=== PATIENT | female | born 1955 | race Caucasian/White ===

== ENCOUNTER 2020-12-16 10:21 | Observation (INO) ==
[2020-12-16] MEDS ORDERED: Propofol 10 MG/ML 20 ML BTL ONE ×3 (11:47→12:42)
[2020-12-16] MEDS ORDERED: fentaNYL 100 mcg/2 ml 50 MCG/ML VIAL ONE ×2 (11:47→12:42)
[2020-12-16] MEDS ORDERED: Lidocaine 2% PF 5 ML VIAL ONE ×4 (11:49→12:43)
[2020-12-16] MEDS ORDERED: Midazolam 2 mg/2 ml VIAL 1 mg/ml 2 ml VIAL (2 mg) ONE ×2 (11:50→12:42)
[2020-12-16] MEDS ORDERED: Glycopyrrolate IV 0.2 MG/ML 1 ML VIAL ONE (11:50)
[2020-12-16 11:54] LABS: ABS Basophils 0.1 10^3/ul (0-0.2); ABS Lymphocytes 1.3 10^3/ul (1.0-4.8); ABS Monocytes 1.1 10^3/ul (0-0.8); ABS Neutrophils 9.2 10^3/ul (1.5-7.7); Eosinophil % 0.3 %; Hematocrit 41 % (35-47); Hemoglobin 13.9 g/dL (12.0-16.0); Lymphocyte % 11.4 %; Mean Corpuscular HGB Conc 34 g/dL (31-36); Mean Corpuscular Hemoglobin 30 pg (27-31); Mean Corpuscular Volume 90 fL (80-97); Mean Platelet Volume 8.7 fL (7.4-10.4); Nucleated Red Blood Cells % 0.1; Platelet Count 196 10^3/uL (150-450); Red Cell Distribution Width 13 % (10-15); White Blood Count 11.8 10^3/uL (3.5-10.8)
[2020-12-16 12:09] LABS: INR 1.15 (0.82-1.09)
[2020-12-16 12:15] LABS: Albumin 4.2 g/dL (3.2-5.2); Albumin/Globulin Ratio 1.3 (1-3); Calcium 8.9 mg/dL (8.6-10.3); EGFR African American 115.5 (>60); EGFR Non-African American 95.4 (>60); Globulin 3.3 g/dL (2-4); Total Bilirubin 0.5 mg/dL (0.2-1.0); Total Protein 7.5 g/dL (6.4-8.9)
[2020-12-16] MEDS ORDERED: ceFAZolin 2 GM PREMIX 2 GM/50 ML BAG ONE (12:32)
[2020-12-16] MEDS ORDERED: ROPIVACAINE 5 MG/ML 30 ML BTL (0.5%) ONE (12:42)
[2020-12-16] MEDS ORDERED: Succinylcholine 200 mg VIAL 20 mg/ml 10 ml VIAL (200 mg) ONE (12:42)
[2020-12-16] MEDS ORDERED: Dexmedetomidine 200 mcg/2 ml 2 ml VIAL (200 mcg) ONE (12:43)
[2020-12-16] MEDS ORDERED: Lidocaine 1% w EPI 1:100,000 MDV 20 ML VIAL ONE (13:15)
[2020-12-16] MEDS ORDERED: Bacitracin INJECTION 50,000 UNITS ONE (13:15)
[2020-12-16] MEDS ORDERED: Phenylephrine 40 mcg/mL 10mL (400mcg) SYRINGE ONE ×2 (14:15→17:51)
[2020-12-16] MEDS ORDERED: Phenylephrine IV 10 MG/ML 1 ml VIAL ONE (14:29)
[2020-12-16] MEDS ORDERED: Dexamethasone IV 4 MG/ML VIAL 1 ml VIAL ONE (14:33)
[2020-12-16] MEDS ORDERED: Ondansetron 4 mg VIAL 2 MG/ML 2 ml VIAL ONE (14:33)
[2020-12-16] MEDS ORDERED: Rocuronium 50 mg VIAL 10 mg/ml 5 ml VIAL (50 mg) ONE ×2 (15:39→16:26)
[2020-12-16] MEDS ORDERED: Albumin Human 5% 12.5 GM/250 ML BTL IV ONE (16:00)
[2020-12-16] MEDS ORDERED: Magnesium Hydroxide LIQ 30 ML UDC PO PRN (16:36)
[2020-12-16] MEDS ORDERED: Morphine 2 MG/ML SYRINGE IV PRN (16:36)
[2020-12-16] MEDS ORDERED: Ondansetron 4 mg VIAL 2 MG/ML 2 ml VIAL IV PRN (16:36)
[2020-12-16] MEDS ORDERED: diPHENhydraMINE 25 mg TAB PO PRN (16:36)
[2020-12-16] MEDS ORDERED: Lactulose 30 ml UDC PO PRN (16:36)
[2020-12-16] MEDS ORDERED: Ondansetron ODT 4 mg TAB 4 MG TAB PO PRN (16:36)
[2020-12-16] MEDS ORDERED: oxyCODONE/Acetamin 5/325 mg TAB PO PRN (16:36)
[2020-12-16] MEDS ORDERED: diPHENhydraMINE IV 50 MG/ML 1 ml VIAL (BENADRYL) IV PRN (16:36)
[2020-12-16] MEDS ORDERED: oxyCODONE/Acetamin 10/325(NF) TAB PO PRN (16:52)
[2020-12-16] MEDS ORDERED: Nystatin TOP POWDER 15 GM BTL TOPICAL PRN (16:52)
[2020-12-16] MEDS ORDERED: Lactated Ringers 1000 ml BAG 1,000 ML IV SCH (17:00)
[2020-12-16] MEDS ORDERED: Acetaminophen IV 1 GM/100ML 100 ML ONE (17:43)
[2020-12-16] MEDS ORDERED: Naloxone 0.4 mg VIAL 0.4 mg/ml 1 ml VIAL IV PRN (18:18)
[2020-12-16] MEDS ORDERED: fentaNYL 100 mcg/2 ml 50 MCG/ML VIAL IV PRN (18:18)
[2020-12-16] MEDS ORDERED: DiMENhydriNATE IV 50 mg/ml 1 ml VIAL IV PUSH PRN (18:18)
[2020-12-16] MEDS ORDERED: Levalbuterol 1.25MG/0.5ML NEB.SOL INH PRN (18:18)
[2020-12-16] MEDS ORDERED: Dextrose 50% Syringe 50 ml 25 GM/50 ML SYRINGE IV PUSH PRN (18:37)
[2020-12-16] MEDS ORDERED: CMCS:Simvastatin 10 mg TAB (NF) PO SCH (21:00)
[2020-12-16] MEDS: Albuterol HFA INHALER 8 gm MDI INH PRN (21:30)
[2020-12-16] MEDS: ceFAZolin 1 GM ADVAN 1 GM in NS 0.9% 50 ML 50 ML IVPB SCH (21:35)
[2020-12-16] MEDS: Magnesium Hydroxide LIQ 30 ML UDC PO SCH (21:37)
[2020-12-16] MEDS: oxyCODONE/Acetamin 5/325 mg TAB PO PRN (21:53)
[2020-12-16] MEDS: Mometasone/Formoter 200/5 MDI INH SCH (22:30)
[2020-12-17 05:38] LABS: Hematocrit 30 % (35-47); Hemoglobin 10.7 g/dL (12.0-16.0); Mean Platelet Volume 8.8 fL (7.4-10.4); Platelet Count 146 10^3/uL (150-450)
[2020-12-17] MEDS: ceFAZolin 1 GM ADVAN 1 GM in NS 0.9% 50 ML 50 ML IVPB SCH ×2 (05:52→13:40)
[2020-12-17 05:57] LABS: EGFR African American 144.1 (>60); EGFR Non-African American 119.1 (>60); Potassium 4.2 mmol/L (3.5-5.0)
[2020-12-17] MEDS: Mometasone/Formoter 200/5 MDI INH SCH (07:28)
[2020-12-17] MEDS: Magnesium Hydroxide LIQ 30 ML UDC PO SCH (08:50)
[2020-12-17] MEDS ORDERED: Vitamin THERAPEUTIC TAB PO SCH (09:00)
[2020-12-17] MEDS: oxyCODONE/Acetamin 5/325 mg TAB PO PRN (09:56)
[2020-12-17] MEDS: Albuterol HFA INHALER 8 gm MDI INH PRN (09:57)
[2020-12-17 11:40] VITALS: BP 126/53
[2020-12-17] MEDS ORDERED: Enoxaparin 40 MG/0.4 ML SYR SUBCUT SCH (12:00)
== END 2020-12-17 14:50 | disposition home or self-care (01) ==
LOC: SSU 10:21 → ED 10:21
PROVIDERS: ADMIT Physician Assistant; ATTEND Orthopaedic Surgery Sports Medicine